=== PATIENT | female | born 1995 | race Caucasian/White ===

== ENCOUNTER 2020-03-15 10:09 | Emergency (ER) | payer OTHER ==
[~2020-03-15] VITALS: Ht 162.6 cm; Wt 58.4 kg
--- NOTE | 2020-03-15 10:23 | NUR ---
"I DRANK TOO MUCH" "LAST NIGHT" "PROBABLY REGULARLY TOO". NO FOOD INTAKE TODAY. VOMITING STARTED AT 0600 - VOMITED "A LOT" TODAY. INTERMITTENT SHIVERING & DRY HEAVES NOTED.
[2020-03-15] MEDS ORDERED: TRAZADONE (10:25)
[2020-03-15] MEDS ORDERED: ONDANSETRON ODT 4 MG PO ONE (10:30)
[2020-03-15] MEDS ORDERED: FAMOTIDINE 20 MG/2 ML IV ONE (10:30)
[2020-03-15] MEDS ORDERED: ONDANSETRON 2MG/ML, 2ML IVPush ONE (10:30)
[2020-03-15] MEDS ORDERED: SODIUM CHLORIDE FLUSH 10ML SYR IVF ONE (10:30)
[2020-03-15] MEDS ORDERED: SODIUM CHLORIDE 0.9% 1,000ML IVBOLUS ONE (10:30)
--- NOTE | 2020-03-15 10:48 | NUR ---
PRIOR TO PIV, OBSERVED PT STICKING FINGERS IN MOUTH AND TRYING TO VOMIT. INSTRUCTED PT TO REMOVE FINGERS. PT STATES "I HAVE TO! VOMITING MAKES ME FEEL BETTER!" INFORMED PT THAT I NEED TO START AN IV AND IT'S EASIER WHEN SHE'S NOT TRYING TO VOMIT. PT COMPLIED, UNTIL AFTER PIV AND NS BOLUS INTIATED. DR CAMPBELL NOTIFIED.
[2020-03-15 10:53] LABS: BASOPHILS % (AUTO) 0 % (0-1); EOSINOPHILS % (AUTO) 0 % (1-7); LYMPHOCYTES % (AUTO) 17 % (22-44); MEAN CORPUSCULAR HEMOGLOBIN 31.6 pg (27.0-34.8); MEAN CORPUSCULAR HGB CONC 33.9 g/dL (32.4-35.8); MEAN PLATELET VOLUME 7.4 fL (7.4-10.4); MONOCYTES % (AUTO) 4 % (2-9); NEUTROPHILS % (AUTO) 79 % (42-75); PLATELET COUNT 418 x10^3/uL (130-400); RED BLOOD COUNT 4.84 x10^6/uL (3.82-5.3); RED CELL DISTRIBUTION WIDTH 12.7 % (9.6-15.2)
[2020-03-15] MEDS ORDERED: ONDANSETRON 2MG/ML, 2ML ONE (10:53)
[2020-03-15 10:54] LABS: MD NO
[2020-03-15] MEDS ORDERED: FAMOTIDINE 20 MG/2 ML ONE (10:54)
[2020-03-15] MEDS ORDERED: MORPHINE SULFATE 4 MG/ML, 1ML ONE (10:54)
[2020-03-15] MEDS ORDERED: MORPHINE SULFATE 4 MG/ML, 1ML IVPush PRN (11:00)
--- NOTE | 2020-03-15 11:01 | NUR ---
ZOFRAN, MORPHINE & PEPCID GIVEN PER EMAR. SIDE RAILS UPX2, CALL LIGHT W/IN REACH, NEW EMESIS BAG PROVIDED.
[2020-03-15 11:04] LABS: ANION GAP 13 mmol/L (5-15); CALCIUM 9.5 mg/dL (8.5-10.1); CHLORIDE 113 mmol/L (98-107); CREATININE 0.72 mg/dL (0.55-1.02)
[2020-03-15 11:05] LABS: ALANINE AMINOTRANSFERASE 20 U/L (12-78); ALBUMIN 4.7 g/dL (3.4-5.0)
[2020-03-15 11:10] LABS: ALKALINE PHOSPHATASE 55 U/L (45-117); TOTAL PROTEIN 8.6 g/dL (6.4-8.2)
--- NOTE | 2020-03-15 11:19 | NUR ---
RESTING QUIETLY ON GURNEY; NS INFUSING.
[2020-03-15] MEDS ORDERED: MAALOX/HYOSCYAMINE/LIDOCAINE 45 ML BTL ONE (11:48)
[2020-03-15] MEDS: MAALOX/HYOSCYAMINE/LIDOCAINE 45 ML BTL PO ONE ×2 (11:52→11:53)
[2020-03-15] MEDS ORDERED: PROMETHAZINE 25 MG/ML, 1ML IM ONE (12:00)
[2020-03-15] MEDS ORDERED: D5%-0.45% NACL 1,000 ML IV SCH ×2 (12:00→12:04)
[2020-03-15] MEDS ORDERED: PROMETHAZINE 25 MG/ML, 1ML ONE (12:01)
[2020-03-15 13:08] VITALS: BP 110/73
--- NOTE | 2020-03-15 13:38 | NUR ---
RESTING QUIETLY ON GURNEY; INFORMED OF PENDING DC. DENIES NAUSEA CURRENTLY. REPORTS DECREASED PAIN.
== END 2020-03-15 13:55 | disposition home or self-care (01) ==
LOC: ED 10:23
DX: K29.00 Acute gastritis without bleeding (principal); R10.84 Generalized abdominal pain; F10.129 Alcohol abuse with intoxication, unspecified; Y90.9 Presence of alcohol in blood, level not specified
CPT/HCPCS: 36415; 80053; 83690; 83735; 84703; 85025; 96361; 96365; 96372; 96375; 99284; J2270; J2405; J2550; J7030

== ENCOUNTER 2020-06-03 08:47 | Emergency (ER) | payer OTHER ==
[~2020-06-03] VITALS: Ht 162.6 cm; Wt 63.9 kg
[~2020-06-03 08:47] MED LIST: TRAZADONE
--- NOTE | 2020-06-03 09:06 | NUR ---
PT + 2/2 TO HOME EPT. NOW WITH CRAMPING AND "SHOOTING PAINS RLQ. DR MOSES AT BEDSIDE, PT ASSESSMENT AND POC DISCUSSED, QUESTIONS ANSWERED. CALL LIGHT W/I REACH, NAD NOTED.
[2020-06-03 09:40] LABS: BASOPHILS % (AUTO) 0 % (0-1); EOSINOPHILS % (AUTO) 1 % (1-7); LYMPHOCYTES % (AUTO) 21 % (22-44); MD NO; MEAN CORPUSCULAR HEMOGLOBIN 32.4 pg (27.0-34.8); MEAN CORPUSCULAR HGB CONC 34.6 g/dL (32.4-35.8); MEAN PLATELET VOLUME 7.2 fL (7.4-10.4); MONOCYTES % (AUTO) 6 % (2-9); NEUTROPHILS % (AUTO) 72 % (42-75); PLATELET COUNT 309 x10^3/uL (130-400); RED CELL DISTRIBUTION WIDTH 12.2 % (9.6-15.2)
[2020-06-03 09:50] LABS: ALBUMIN 3.8 g/dL (3.4-5.0); ANION GAP 4 mmol/L (5-15); CHLORIDE 108 mmol/L (98-107); CREATININE 0.69 mg/dL (0.55-1.02)
--- NOTE | 2020-06-03 10:34 | NUR ---
PT RH+ PER BLOOD BANK RESULTS.
--- NOTE | 2020-06-03 11:21 | NUR ---
PT TO US WITH TECH TRANSPORT
[2020-06-03 12:15] VITALS: BP 107/67
--- NOTE | 2020-06-03 12:15 | NUR ---
TEST RESULTED, CHART UP FOR RECHECK. PT AWARE, NAD NOTED AND CALL LIGHT W/I REACH
--- NOTE | 2020-06-03 12:56 | NUR ---
Patient/Caregiver given discharge instructions and they have confirmed that they understand the instructions. Patient ambulatory with steady gait.
== END 2020-06-03 12:56 | disposition home or self-care (01) ==
LOC: ED 10:02
DX: Z32.01 Encounter for pregnancy test, result positive (principal); O34.81 Maternal care for other abnormalities of pelvic organs, first trimester; N83.201 Unspecified ovarian cyst, right side; Z3A.01 Less than 8 weeks gestation of pregnancy; Z87.891 Personal history of nicotine dependence
CPT/HCPCS: 36415; 76801; 80048; 82040; 84702; 85025; 86901; 99284

== ENCOUNTER 2020-06-13 13:28 | Emergency (ER) | payer OTHER ==
[~2020-06-13] VITALS: Ht 162.6 cm; Wt 60.3 kg
--- NOTE | 2020-06-13 14:01 | NUR ---
PEDIATRIC PHYSICIAN: PT AMBULATORY WITH STEADY GAIT TO ROOM AT THIS TIME FROM LOBBY WITH TECHNICIAN HELPER INSTRUMENT
--- NOTE | 2020-06-13 14:13 | NUR ---
Pt ambulatory to bathroom with steady gait.
--- NOTE | 2020-06-13 14:22 | NUR ---
This pt is , with 2 spontaneous abortions. Pt states she's had brown vaginal "spotting like an irregular period" for a couple days. She presents to the ER today because cramping started. Pt in bed, connected to BP and O2 monitors. YASSINE, on phone, call light in reach.
[2020-06-13 14:39] LABS: MICROSCOPIC INDICATED
[2020-06-13 14:43] LABS: HCG UR SG 1.022 (1.003-1.030)
--- NOTE | 2020-06-13 14:43 | NUR ---
MD Olvera at bedside for eval. Pt on phone, YASSINE, call light in reach.
[2020-06-13 14:52] LABS: BASOPHILS % (AUTO) 0 % (0-1); EOSINOPHILS % (AUTO) 1 % (1-7); LYMPHOCYTES % (AUTO) 13 % (22-44); MEAN CORPUSCULAR HEMOGLOBIN 31.7 pg (27.0-34.8); MEAN CORPUSCULAR HGB CONC 33.8 g/dL (32.4-35.8); MEAN PLATELET VOLUME 6.9 fL (7.4-10.4); MONOCYTES % (AUTO) 5 % (2-9); NEUTROPHILS % (AUTO) 81 % (42-75); PLATELET COUNT 348 x10^3/uL (130-400); RED BLOOD COUNT 4.18 x10^6/uL (3.82-5.3)
[2020-06-13 15:02] LABS: ALBUMIN 3.9 g/dL (3.4-5.0); ANION GAP 7 mmol/L (5-15); CALCIUM 9.1 mg/dL (8.5-10.1); CHLORIDE 107 mmol/L (98-107); CREATININE 0.61 mg/dL (0.55-1.02)
[2020-06-13 15:14] LABS: MD NO
[2020-06-13 15:52] VITALS: BP 111/62
== END 2020-06-13 15:56 | disposition home or self-care (01) ==
LOC: ED 15:40
DX: O20.0 Threatened abortion (principal); Z3A.01 Less than 8 weeks gestation of pregnancy
CPT/HCPCS: 36415; 76801; 80048; 81001; 81025; 82040; 84702; 85025; 99284

== ENCOUNTER 2020-08-22 14:42 | Emergency (ER) | payer OTHER ==
[~2020-08-22] VITALS: Ht 162.6 cm; Wt 65.0 kg
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
[2020-08-22] MEDS ORDERED: ACETAMINOPHEN 325 MG TABLET PO ONE (15:30)
--- NOTE | 2020-08-22 15:30 | NUR ---
pt in US. will medicate upon return to pt room.
[2020-08-22] MEDS ORDERED: ACETAMINOPHEN 325 MG TABLET ONE (15:58)
[2020-08-22 16:01] VITALS: BP 99/56
--- NOTE | 2020-08-22 16:01 | NUR ---
PT RESTING ON GURNEY. NADN. OMER.
--- NOTE | 2020-08-22 16:26 | NUR ---
ASSUMED CARE FOR D/C ONLY Patient/Caregiver given discharge instructions and they have confirmed that they understand the instructions. Patient ambulatory with steady gait.
== END 2020-08-22 16:33 | disposition home or self-care (01) ==
LOC: ED 16:00
DX: O26.892 Other specified pregnancy related conditions, second trimester (principal); S30.1XXA Contusion of abdominal wall, initial encounter; Z3A.15 15 weeks gestation of pregnancy; W10.9XXA Fall (on) (from) unspecified stairs and steps, initial encounter; Y93.89 Activity, other specified; Y92.009 Unspecified place in unspecified non-institutional (private) residence as the place of occurrence of the external cause; Y99.8 Other external cause status
CPT/HCPCS: 76815; 99284

== ENCOUNTER 2020-09-16 15:42 | Emergency (ER) | payer OTHER ==
[~2020-09-16] VITALS: Ht 162.6 cm; Wt 69.0 kg
--- NOTE | 2020-09-16 15:58 | NUR ---
TRIAGE: PATIENT ARRIVES WITH A MIGRAINE THAT SHE HAS HAD FOR ONE WEEK. SHE TOOK 40 MG FIORACET AND 1,500 MG TODAY OF TYLENOL AND MIGRAINE NOT IMPROVING. HISTORY OF MIGRAINES.
[2020-09-16] MEDS ORDERED: DIPHENHYDRAMINE 50 MG/ML, 1ML IVPush ONE (16:30)
[2020-09-16] MEDS ORDERED: METOCLOPRAMIDE 5 MG/ML, 2ML IVPush ONE (16:30)
[2020-09-16] MEDS ORDERED: SODIUM CHLORIDE 0.9% 1,000ML IVBOLUS ONE (16:30)
[2020-09-16] MEDS ORDERED: SODIUM CHLORIDE FLUSH 10ML SYR IVF ONE (16:30)
[2020-09-16] MEDS ORDERED: METOCLOPRAMIDE 5 MG/ML, 2ML ONE (16:40)
[2020-09-16] MEDS ORDERED: DIPHENHYDRAMINE 50 MG/ML, 1ML ONE (16:40)
--- NOTE | 2020-09-16 16:51 | NUR ---
PT RESTING IN BED, PT ON MONITOR WITH PT VSS. PT MEDICATED PER JUL. PT DENIED ANY CURRENT WANTS OR REQUESTS. PT HAS UNLABORED AND EQUAL BREATHING.
--- NOTE | 2020-09-16 16:51 | NUR ---
PT AT CT
[2020-09-16 16:54] LABS: BASOPHILS % (AUTO) 0 % (0-1); EOSINOPHILS % (AUTO) 1 % (1-7); LYMPHOCYTES % (AUTO) 16 % (22-44); MEAN CORPUSCULAR HEMOGLOBIN 31.6 pg (27.0-34.8); MEAN CORPUSCULAR HGB CONC 34.1 g/dL (32.4-35.8); MEAN PLATELET VOLUME 7.2 fL (7.4-10.4); MONOCYTES % (AUTO) 6 % (2-9); NEUTROPHILS % (AUTO) 77 % (42-75); PLATELET COUNT 263 x10^3/uL (130-400); RED BLOOD COUNT 3.92 x10^6/uL (3.82-5.3); RED CELL DISTRIBUTION WIDTH 12.8 % (9.6-15.2)
[2020-09-16 16:59] LABS: MD NO
[2020-09-16 17:01] LABS: MICROSCOPIC NOT IND
[2020-09-16 17:07] LABS: ALBUMIN 3.4 g/dL (3.4-5.0); ANION GAP 7 mmol/L (5-15); CALCIUM 8.6 mg/dL (8.5-10.1); CHLORIDE 109 mmol/L (98-107)
[2020-09-16 17:13] LABS: ALANINE AMINOTRANSFERASE 38 U/L (12-78); ALKALINE PHOSPHATASE 39 U/L (45-117); BILIRUBIN,TOTAL 0.2 mg/dL (0.2-1.0); CREATININE 0.44 mg/dL (0.55-1.02)
[2020-09-16 18:59] VITALS: BP 100/54
== END 2020-09-16 19:02 | disposition home or self-care (01) ==
LOC: ED 18:56
DX: G44.52 New daily persistent headache (NDPH) (principal)
CPT/HCPCS: 36415; 70450; 80053; 81003; 85025; 93005; 96361; 96374; 96375; 99285; J1200; J2765; J7030

== ENCOUNTER 2020-09-26 12:02 | Outpatient (CLI) | payer OTHER ==
[~2020-09-26] VITALS: Ht 162.6 cm; Wt 70.0 kg
[2020-09-26 12:40] VITALS: BP 110/57
[2020-09-26] MEDS ORDERED: BUTA1CAP59 PO (13:28)
[2020-09-26 13:34] LABS: AMPHETAMINE SCREEN, URINE Negative (Negative); BARBITURATE SCREEN, URINE Positive (Negative); BENZODIAZEPINE SCREEN, URINE Negative (Negative); CANNABINOID SCREEN, URINE Positive (Negative); COCAINE SCREEN, URINE Negative (Negative); METHADONE SCREEN, URINE Negative (Negative); OPIATE SCREEN, URINE Negative (Negative)
== END 2020-09-26 14:15 | disposition home or self-care (01) ==
LOC: LDOP 12:02
PROVIDERS: ATTEND Obstetrics & Gynecology
DX: Z34.92 Encounter for supervision of normal pregnancy, unspecified, second trimester (principal); Z3A.20 20 weeks gestation of pregnancy
CPT/HCPCS: 76815; 80307; 99211; G0463

== ENCOUNTER 2020-11-27 10:23 | Outpatient (CLI) | payer OTHER ==
[~2020-11-27] VITALS: Ht 162.6 cm; Wt 71.3 kg
[~2020-11-27 10:23] MED LIST changes: +BUTA1CAP59 PO
[2020-11-27 10:58] LABS: MICROSCOPIC INDICATED
[2020-11-27 11:08] LABS: AMPHETAMINE SCREEN, URINE Negative (Negative); BARBITURATE SCREEN, URINE Negative (Negative); BENZODIAZEPINE SCREEN, URINE Negative (Negative); CANNABINOID SCREEN, URINE Positive (Negative); COCAINE SCREEN, URINE Negative (Negative); METHADONE SCREEN, URINE Negative (Negative); OPIATE SCREEN, URINE Negative (Negative)
== END 2020-11-27 14:33 | disposition home or self-care (01) ==
LOC: LDOP 10:23
PROVIDERS: ATTEND Obstetrics & Gynecology
DX: O26.893 Other specified pregnancy related conditions, third trimester (principal); R10.9 Unspecified abdominal pain; N13.30 Unspecified hydronephrosis; Z3A.29 29 weeks gestation of pregnancy
CPT/HCPCS: 59025; 76770; 76857; 80307; 81001; 87086

== ENCOUNTER 2020-12-24 | Observation (INO) | payer OTHER ==
[2020-12-24 02:15] LABS: MICROSCOPIC INDICATED
== END 2020-12-24 03:10 | disposition home or self-care (01) ==
LOC: LDOP → LDIP 02:03
PROVIDERS: ADMIT Obstetrics & Gynecology; ATTEND Obstetrics & Gynecology
DX: O98.513 Other viral diseases complicating pregnancy, third trimester (principal); U07.1 COVID-19; O60.03 Preterm labor without delivery, third trimester; Z3A.33 33 weeks gestation of pregnancy; Z79.899 Other long term (current) drug therapy
CPT/HCPCS: 59025; 81001; 87086; G0378

== ENCOUNTER 2021-01-21 02:10 | Inpatient (IN) | payer OTHER ==
[~2021-01-21] VITALS: Ht 162.6 cm; Wt 75.5 kg
[2021-01-21] MEDS ORDERED: ACETAMINOPHEN 325 MG TABLET ONE (05:52)
[2021-01-21] MEDS ORDERED: METOCLOPRAMIDE 5 MG/ML, 2ML IVPush PRN (06:00)
[2021-01-21] MEDS ORDERED: OXYTOCIN 30U/ 0.9% NaCL 500ML 500 ML IV ONE (06:00)
[2021-01-21] MEDS ORDERED: TERBUTALINE 1 MG/ML, 1ML IVPush PRN (06:00)
[2021-01-21] MEDS ORDERED: D5%-LACTATED RINGERS 1,000 ML IV SCH (06:00)
[2021-01-21] MEDS ORDERED: ALUMINUM/MAG/SIMETHICONE 30 ML UDC PO PRN (06:00)
[2021-01-21] MEDS ORDERED: SODIUM CITRATE/CITRIC ACID 30 ML UDC PO PRN (06:00)
[2021-01-21] MEDS ORDERED: TERBUTALINE 1 MG/ML, 1ML SQ PRN (06:00)
[2021-01-21] MEDS ORDERED: OXYTOCIN 30U/ 0.9% NaCL 500ML 500 ML IV PRN (06:00)
[2021-01-21] MEDS ORDERED: CALCIUM CARBONATE 500 MG TAB.CHEW PO PRN (06:00)
[2021-01-21] MEDS ORDERED: NEWBORN KIT ONE (06:06)
[2021-01-21] MEDS ORDERED: LIDOCAINE 1%, 20ML ONE ×2 (06:06→21:25)
[2021-01-21] MEDS ORDERED: MISOPROSTOL 200 MCG TABLET ONE ×2 (06:06→21:25)
[2021-01-21] MEDS: LACTATED RINGERS 1,000 ML IV SCH ×3 (06:25→21:06)
[2021-01-21 06:26] LABS: BASOPHILS % (AUTO) 0 % (0-1); EOSINOPHILS % (AUTO) 1 % (1-7); LYMPHOCYTES % (AUTO) 16 % (22-44); MEAN CORPUSCULAR HEMOGLOBIN 32.6 pg (27.0-34.8); MEAN CORPUSCULAR HGB CONC 35.5 g/dL (32.4-35.8); MEAN PLATELET VOLUME 7.9 fL (7.4-10.4); MONOCYTES % (AUTO) 5 % (2-9); NEUTROPHILS % (AUTO) 78 % (42-75); PLATELET COUNT 220 x10^3/uL (130-400); RED BLOOD COUNT 3.98 x10^6/uL (3.82-5.3); RED CELL DISTRIBUTION WIDTH 12.3 % (9.6-15.2)
[2021-01-21 07:03] LABS: AMPHETAMINE SCREEN, URINE Negative (Negative); BARBITURATE SCREEN, URINE Negative (Negative); BENZODIAZEPINE SCREEN, URINE Negative (Negative); CANNABINOID SCREEN, URINE Negative (Negative); COCAINE SCREEN, URINE Negative (Negative); METHADONE SCREEN, URINE Negative (Negative); OPIATE SCREEN, URINE Negative (Negative)
[2021-01-21] MEDS: ONDANSETRON 2MG/ML, 2ML IVPush PRN ×2 (10:50→19:37)
[2021-01-21] MEDS: FENTANYL PF 100 MCG/2ML IVPush PRN ×3 (10:50→19:12)
[2021-01-21] MEDS ORDERED: BUPIVACAINE 0.25% ONE (14:27)
[2021-01-21] MEDS ORDERED: LIDOCAINE/PF 1.5% EPI 1:200K, 10 ML ONE (14:28)
[2021-01-21] MEDS ORDERED: FENTANYL/BUPIV./NS/PF 250 ML EPIDCONT SCH (14:30)
[2021-01-21] MEDS ORDERED: EPHEDRINE 50 MG/ML, 1ML IVPush PRN (14:30)
[2021-01-21] MEDS ORDERED: LACTATED RINGERS 1,000 ML IV SCH (14:30)
[2021-01-21] MEDS ORDERED: NALOXONE 0.4 MG/ML, 1ML IVPush PRN (14:30)
[2021-01-21] MEDS ORDERED: LACTATED RINGERS 1,000 ML IVBOLUS PRN (14:30)
[2021-01-22] MEDS ORDERED: IBUPROFEN 800 MG TABLET PO PRN (02:30)
[2021-01-22] MEDS ORDERED: ACETAMINOPHEN 325 MG TABLET PO PRN (02:30)
[2021-01-22] MEDS ORDERED: HYDROcodone/APAP 5/325 TABLET PO PRN (02:30)
[2021-01-22] MEDS ORDERED: RHOGAM FROM BLOOD BANK 1 NOTE EA IM/IV ONE (02:30)
[2021-01-22] MEDS: OXYTOCIN 30U/ 0.9% NaCL 500ML 500 ML IV SCH ×2 (02:30→07:20)
[2021-01-22] MEDS ORDERED: BISACODYL 10 MG SUPP PR PRN (02:30)
[2021-01-22] MEDS ORDERED: MISOPROSTOL 200 MCG TABLET PR PRN (02:30)
[2021-01-22] MEDS ORDERED: ONDANSETRON 2MG/ML, 2ML IV PRN (02:30)
[2021-01-22 04:10] VITALS: BP 105/68
[2021-01-22] MEDS: ACETAMINOPHEN 325 MG TABLET PO PRN ×2 (05:37→15:50)
[2021-01-22] MEDS: IBUPROFEN 600 MG TABLET PO PRN ×3 (08:42→22:10)
[2021-01-22] MEDS: DOCUSATE 100 MG CAPSULE PO PRN ×2 (08:42→22:11)
[2021-01-22] MEDS: PRENATAL VIT/IRON/FA 1 EACH TABLET PO SCH (08:42)
[2021-01-22 08:45] VITALS: BP 111/65
[2021-01-22 09:19] LABS: BASOPHILS % (AUTO) 0 % (0-1); EOSINOPHILS % (AUTO) 0 % (1-7); LYMPHOCYTES % (AUTO) 9 % (22-44); MEAN CORPUSCULAR HEMOGLOBIN 31.9 pg (27.0-34.8); MEAN CORPUSCULAR HGB CONC 34.7 g/dL (32.4-35.8); MEAN PLATELET VOLUME 7.5 fL (7.4-10.4); MONOCYTES % (AUTO) 5 % (2-9); NEUTROPHILS % (AUTO) 86 % (42-75); PLATELET COUNT 196 x10^3/uL (130-400); RED BLOOD COUNT 3.49 x10^6/uL (3.82-5.3); RED CELL DISTRIBUTION WIDTH 12.3 % (9.6-15.2)
[2021-01-22 15:45] VITALS: BP 96/56
[2021-01-22 18:28] VITALS: BP 97/63
[2021-01-22] MEDS ORDERED: ONDANSETRON ODT 4 MG PO PRN (21:00)
[2021-01-22] MEDS: OXYcodone/APAP 5/325MG TABLET PO PRN (22:11)
[2021-01-23] VITALS: BP 107/67
[2021-01-23] MEDS: OXYcodone/APAP 5/325MG TABLET PO PRN (02:07)
[2021-01-23 08:00] VITALS: BP 110/74
[2021-01-23] MEDS: PRENATAL VIT/IRON/FA 1 EACH TABLET PO SCH (10:52)
[2021-01-23] MEDS: DOCUSATE 100 MG CAPSULE PO PRN ×2 (10:52→22:27)
[2021-01-23] MEDS: IBUPROFEN 600 MG TABLET PO PRN ×2 (16:07→22:27)
[2021-01-23] MEDS: ACETAMINOPHEN 325 MG TABLET PO PRN ×2 (16:07→22:27)
[2021-01-23 19:15] VITALS: BP 110/68
[2021-01-24 09:35] VITALS: BP 106/70
[2021-01-24] MEDS: PRENATAL VIT/IRON/FA 1 EACH TABLET PO SCH (09:45)
[2021-01-24] MEDS: DOCUSATE 100 MG CAPSULE PO PRN (09:45)
[2021-01-24] MEDS: IBUPROFEN 600 MG TABLET PO PRN (09:47)
[2021-01-24] MEDS ORDERED: IBUP-1222 PO (11:11)
[2021-01-24] MEDS ORDERED: DOCU-131 PO (11:11)
== END 2021-01-24 12:40 | disposition home or self-care (01) | DRG 806 ==
LOC: LDIP 05:09 → 2NW 01-22 04:01
PROVIDERS: ADMIT Obstetrics & Gynecology; ATTEND Obstetrics & Gynecology
PROC: 10E0XZZ Delivery of Products of Conception, External Approach (ICD-10-PCS; principal; 2021-01-22)
PROC: 0HQ9XZZ Repair Perineum Skin, External Approach (ICD-10-PCS; 2021-01-22)
PROC: 3E0R3BZ Introduction of Anesthetic Agent into Spinal Canal, Percutaneous Approach (ICD-10-PCS; 2021-01-22)
PROC: 00HU33Z Insertion of Infusion Device into Spinal Canal, Percutaneous Approach (ICD-10-PCS; 2021-01-22)
DX: O36.5930 Maternal care for other known or suspected poor fetal growth, third trimester, not applicable or unspecified (principal); O99.354 Diseases of the nervous system complicating childbirth; Z37.0 Single live birth; O43.193 Other malformation of placenta, third trimester; O69.81X0 Labor and delivery complicated by cord around neck, without compression, not applicable or unspecified; Z3A.37 37 weeks gestation of pregnancy; Z20.822 Contact with and (suspected) exposure to COVID-19; O70.0 First degree perineal laceration during delivery; G43.909 Migraine, unspecified, not intractable, without status migrainosus
CPT/HCPCS: 36415; 80307; 85025; 86592; 86850; 86900; 87635; G0378; J2405; J3010; Q0162; J2590; J7120